=== PATIENT | male | born 1955 | race Caucasian/White ===

== ENCOUNTER → 2016-12-06 | Outpatient (CLI) | payer BC, MEDICARE ==
--- NOTE | 2016-12-06 13:02 | PN ---
This patient is coming in for a compliancy check in regards to his obstructive sleep apnea. He has a history of acoustic neuroma, resected and chronic left facial pulse. He has moderate severe obstructive sleep apnea with an AHI of 26 and currently he is on CPAP pressure of 9 cm of water. His compliancy over the past 30 days, he has been adequate. He is averaging around 8.2 hours of CPAP use per night. His CPAP use for more than 4 hours is 100%. His leak factor is only at 8. AHI while on treatment is down to 2.1. He is using an AirFit P10 small size. He has lost a total of 9 pounds. He is currently down to 205. He is still benefiting from treatment. His sleep quality is stable and good and he wakes up alert and awake during the day. Most recent MRI of the brain has not shown any evidence of recurrence in terms of his acoustic neuroma. BP is 135/81, pulse 84, respirations 16, temperature 98.1. BMI is 33.7, weight 223. Height is 5. 8, saturation 93% on room air. GENERAL APPEARANCE: Calm, comfortable. HEENT: Facial asymmetry secondary to facial palsy. LUNGS: Clear to auscultation. HEART: Sounds are regular rate and rhythm. Normal S1, S2. No S3, no S4. No murmurs. ABDOMEN: Soft, nontender, no organomegaly. EXTREMITIES: No clubbing. No cyanosis or clubbing. IMPRESSION: 1. Symptomatic obstructive sleep apnea with an apnea-hypopnea index of 26, currently on CPAP pressure of 9. The patient continues to benefit from the treatment with good compliance. 2. Chronic hypersomnia, improved. 3. Acoustic neuroma. 4. Postsurgical left facial palsy. 5. Hypertension. PLAN: 1. Continue the same CPAP setting which is at a pressure of 9 cm of water. 2. Encourage further weight loss. 3. Activate EPR features on his CPAP. 4. Will continue to follow.
== END | disposition home or self-care (01) ==
LOC: SLEEP 10:11
PROVIDERS: ATTEND Internal Medicine Critical Care Medicine
DX: G47.33 Obstructive sleep apnea (adult) (pediatric) (principal); G51.0 Bell's palsy; G47.13 Recurrent hypersomnia; D33.3 Benign neoplasm of cranial nerves; Z99.89 Dependence on other enabling machines and devices

== ENCOUNTER → 2018-12-11 | Outpatient (CLI) | payer MEDICARE ==
--- NOTE | 2018-12-11 16:01 | PN ---
PROGRESS NOTE This patient is coming in for an annual check regarding his POLLY. He is known to have POLLY and acoustic neuroma, surgically resected, and the patient has left facial paralysis. The patient has moderate to severe disease with an AHI of 26, and currently on CPAP pressure of 9. His weight is down by around 2 pounds. He is utilizing his CPAP machine every night. CPAP compliance for more than 4 hours is 100%. He is averaging around 8.2 hours of CPAP use per night. His leak is 23 L/minute. AHI is down to 1 while on treatment. He is using the AirFit P10 small-sized nose pillows. No new- onset medical problems or comorbidities. No hypersomnia or sleepiness. No snoring while using the CPAP unit. REVIEW OF SYSTEMS: Fourteen-point review of systems was done. Positive findings were all mentioned above in the history of present illness. He still has some left facial weakness related to surgical resection of an acoustic neuroma. No altered mentation. No hypersomnia or sleepiness. No grinding of the teeth. No restlessness in the lower extremities. No anxiety or depression. No sleep fragmentation. No daytime sleepiness or tiredness or fatigue. PHYSICAL EXAMINATION: BP is 134/72, pulse 54, respirations 16, temperature 98.3, saturation 95% on room air. Height is 5 feet 7 inches, weight 213, BMI 33.3. GENERAL APPEARANCE: Calm, comfortable. Head is atraumatic, normocephalic. NECK: Supple. No JVD. No goiter or neck mass. Mallampati class IV. LUNGS: Diminished; otherwise clear. HEART: Heart sounds are regular rate and rhythm. Normal S1, S2. No S3, S4. No murmurs. ABDOMEN: Soft, nontender. No organomegaly. EXTREMITIES: No edema. No cyanosis or clubbing. NEUROLOGIC: Alert and oriented x3. Left facial paralysis is seen. Left facial paralysis is seen. No focal neurological deficits otherwise. PSYCHIATRIC: Negative for anxiety or depression. SKIN: Negative for any wounds or ulceration. IMPRESSION: 1. Obstructive sleep apnea, moderate to severe, with apnea/hypopnea index of 26, currently on CPAP pressure of 9, and the treatment remains extremely successful. 2. Obesity. Weight is stable. He lost approximately 2 pounds since the last evaluation approximately a year ago. 3. Acoustic neuroma. 4. Left facial palsy, iatrogenic, post surgery. 5. Hypersomnia, recovered. PLAN: 1. Continue CPAP at the same level of pressure. 2. Keep the Crouch FX nose pillows. 3. Encourage further weight loss. 4. Treatment will be kept unchanged, and the patient will see me back in a year's time in followup, earlier if needed. MMVIKRAML / IJN: [id number] /
== END ==
LOC: SLEEP 13:37
PROVIDERS: ATTEND Internal Medicine Critical Care Medicine
DX: G47.33 Obstructive sleep apnea (adult) (pediatric) (principal); E66.9 Obesity, unspecified; D33.3 Benign neoplasm of cranial nerves; G51.0 Bell's palsy; Z98.890 Other specified postprocedural states; Z99.89 Dependence on other enabling machines and devices; Z68.33 Body mass index [BMI] 33.0-33.9, adult

== ENCOUNTER → 2020-04-07 | Outpatient (CLI) | payer MEDICARE ==
--- NOTE | 2020-04-07 15:20 | PN ---
PROGRESS NOTE This is a 64-year-old male patient coming in for an annual check regarding obstructive sleep apnea. The patient has moderate to severe disease with an AHI of 26, and the patient is currently on CPAP pressure of 9 cm of water. Since his last year's evaluation, the patient has lost around 4 pounds. Based on the compliance data that was collected on his machine over the past 30 days, the patient has been averaging around 8.3 hours of CPAP use per night. His CPAP pressure is a pressure of 9. His leak is on the order of 23 L/minute. His AHI is down to 1.6 and he is using AirFit P10 small-sized nasal pillows. Doing well. No significant issues with hypertension, diabetes mellitus, stroke, palpitations or cardiac arrest or cardiac complications. The patient's medication remains unchanged. He has been in a good state of health and there have been no other new-onset comorbidities. His sleep quality is good. He is well refreshed and his [place] score is quite low at this point in time. REVIEW OF SYSTEMS: Fourteen-point review of system was done. Positive findings are all mentioned in the history of present illness. PHYSICAL EXAMINATION: BP is 124/70, pulse 54, respirations 16, temperature 98.7, saturation 95% on room air. Height is 5 feet 8 inches, weight is 209. GENERAL APPEARANCE: Calm, comfortable. HEAD: Atraumatic, normocephalic. NECK: Supple. No JVD. No goiter or neck masses. LUNGS: Clear to auscultation. HEART: Heart sounds are regular rate and rhythm. Normal S1, S2. No S3, S4. No murmurs. ABDOMEN: Soft, nontender. No organomegaly. EXTREMITIES: No edema. No cyanosis or clubbing. NEUROLOGIC: Awake and alert. There is no focal neurological deficit. IMPRESSION: 1. Obstructive sleep apnea, AHI of 26, currently on CPAP pressure of 9. Treatment is very successful and the patient has no major hypersomnia or sleepiness during the day. 2. Hyperlipidemia. 3. Hypertension. PLAN: 1. Encourage further weight loss. 2. Keep continuous CPAP therapy at a pressure of 9. 3. Refills were given on the CPAP supplies. 4. See me back in a year's time in followup. MMODL / IJN: [id number] /
== END | disposition home or self-care (01) ==
LOC: SLEEP 13:53
PROVIDERS: ATTEND Internal Medicine Critical Care Medicine
DX: G47.33 Obstructive sleep apnea (adult) (pediatric) (principal); E78.5 Hyperlipidemia, unspecified; I10 Essential (primary) hypertension; Z99.89 Dependence on other enabling machines and devices

== ENCOUNTER → 2021-04-27 | Outpatient (CLI) | payer MEDICARE ==
--- NOTE | 2021-04-27 16:14 | PN ---
PROGRESS NOTE Juan Francisco is coming in for an annual check regarding obstructive sleep apnea. The patient is known to have POLLY, moderate to severe, with an AHI of 26, and the patient is on CPAP at a pressure of 9 cm of water. He is doing very well and he continues to benefit from the treatment, as the patient is feeling and sleeping much better while on treatment. He goes to bed around 10 p.m., wakes up between 6 and 7 a.m. in the morning, and he wears his CPAP every night without any interruption. He is averaging around 9 hours of CPAP use per night and CPAP use for more than 4 hours is 100%. His pressure is currently at 9. His AHI while on treatment is down to 1.8 and the patient is using AirFit P10 nasal pillows. No new-onset comorbidities. His health has been stable for now. No cardiac arrhythmias. He has not taken his COVID-19 vaccination. He has gained only 2 pounds since his last evaluation. Medications are all the same and unchanged. REVIEW OF SYSTEMS: Fourteen-point review of systems was done. Positive findings are all mentioned above in the history of present illness. MEDICATIONS: Medications include: 1. Hydrochlorothiazide 25 daily. 2. Losartan 100 daily. 3. Metoprolol 2.5 mg p.o. twice a day. 4. Lipitor 20 mg p.o. daily. 5. Supplements, including beet-root powder, coenzyme Q, and probiotics. PHYSICAL EXAMINATION: VITAL SIGNS: BP is 131/72, pulse 58, respirations 16, temperature 98.4, saturation 95% on room air. Height is 5 feet 8 inches. Weight is 211, BMI 32. GENERAL APPEARANCE: Calm, comfortable. HEAD: Atraumatic, normocephalic. NECK: Supple. No JVD. No goiter or neck masses. Mallampati class 4. LUNGS: Clear to auscultation. HEART: Heart sounds are regular rate and rhythm. Normal S1, S2. No S3, S4. No murmurs. ABDOMEN: Soft, nontender. No organomegaly. EXTREMITIES: No edema. No cyanosis or clubbing. NEUROLOGIC: Awake and alert. There is no focal neurological deficit. IMPRESSION: 1. Obstructive sleep apnea, moderate to severe. AHI is 26. Currently on CPAP pressure of 9 cm of water. Treatment is successful. 2. Hypertension with adequate control of blood pressure. 3. Hyperlipidemia. 4. Obesity. BMI of 32. PLAN: 1. Keep the same CPAP pressure setting. 2. Keep the AirFit P10 nasal pillows. 3. Treatment is successful. No issues for now. See me back in a year's time in followup. Condition is stable. Supplies will be refilled. MMODL / IJN: [id number] /
== END | disposition home or self-care (01) ==
LOC: SLEEP 12:52
PROVIDERS: ATTEND Internal Medicine Critical Care Medicine
DX: Z53.9 Procedure and treatment not carried out, unspecified reason (principal)

== ENCOUNTER → 2021-08-05 | Outpatient (CLI) | payer MEDICARE ==
[~2021-08-05] MED LIST: BAMLANIVIMAB (EUA) 700 MG, ETESEVIMAB (EUA) 1,400 MG in SODIUM CHLORIDE 0.9% 100 ML IVPB ONE; SODIUM CHLORIDE 0.9% 50 ML IVPB ONE; SODIUM CHLORIDE 0.9% 500 ML 500 ML in EMPTY BAG 1 BAG IV PRN
[2021-08-05 14:07] VITALS: RESP 16; TEMP 97.9
[2021-08-05 14:23] VITALS: BP 95/61; PULSE 74
== END | disposition home or self-care (01) ==
LOC: PROCWHC3 12:57
PROVIDERS: ATTEND Internal Medicine
DX: U07.1 COVID-19 (principal)
CPT/HCPCS: 96360; J3490; M0245

== ENCOUNTER → 2023-02-21 | Outpatient (CLI) | payer MEDICARE ==
--- NOTE | 2023-02-21 16:38 | P.PN ---
Progress Note - Text Progress Note Date: 02/21/23 This is a 67-year-old male patient was coming in today to the sleep Center regarding his obstructive sleep apnea. The patient is known to have moderate to severe POLLY with an AHI of 26 and the patient will maintain on CPAP therapy at pressure of 9 cm of water. His original diagnosis was back in 2014 and the patient is using the same CPAP unit. The machine has exceeded is motorized expectancy and may need a software up-to-date. However it is fully functional. The patient continues to use the machine every night and the patient is extremely compliant and is compliancy is in order of 100%. The patient is achieving more than 4 hours of CPAP use 100% of the time. The patient has been averaging about 7.6 hours of CPAP use per night. The patient has minimal amount of leak around the mask and the patient's AHI is down to 3.2 while on treatment. The leak is minimal at this point in time in order of 20 liters per minute. No hypersomnia or sleepiness during the day. No nighttime chest pain or shortness of breath or heartburn. No snoring while on therapy. He has undergone surgery for acoustic neuroma the patient has left facial weakness. He needs a follow-up MRI as the patient is not seeing any neurosurgeon at this point in time. His other comorbid conditions include hypertension, and hyperlipidemia. No headache. No nocturia. No other new onset medical issues of comorbidities. His [place] score is at 4 The patient's BP is 133/80 with a pulse of 88 and the respiration of 12 and the temperature 97.8 and his weight is 214 pounds The patient appeared well nourished and normally developed. Vital signs as documented. Head exam is unremarkable. No scleral icterus or corneal arcus noted. Neck is without jugular venous distension, thyromegaly, or carotid bruits. Carotid upstrokes are brisk bilaterally. Lungs are clear to auscultation and percussion. Cardiac exam reveals the PMI to be normally sized and situated. Rhythm is regular. First and second heart sounds normal. No murmurs, rubs or gallops. Abdominal exam reveals normal bowel sounds, no masses, no organomegaly and no aortic enlargement. Extremities are nonedematous and both femoral and pedal pulses are normal.Examination of the skin revealed no evidence of significant rashes, suspicious appearing nevi or other concerning lesions. Neurologically the patient is awake and alert and the patient has left facial weakness related to complications of previous surgery for acoustic neuroma. Medications Losartan 100 mg by mouth daily, metoprolol 25 mg twice a day, Lipitor 10 mg by mouth daily and the patient is also taken multiple supplements Assessment Obstructive sleep apnea moderate in severity with an AHI of 26 and the patient continues to receive successful therapy with a CPAP at a pressure of 9 cm of water. The machine is functional in the compliance data is adequate. Hypersomnia, recovered Hypertension Hyperlipidemia Acoustic neuroma postsurgical resection. Plan Continue CPAP therapy the same level of pressure which is 9 cm of water. Refills will be given on the supplies. 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 No need to update his CPAP machine at this point in time Keep the same mask interface See me back in a year's time and follow-up Follow-up with his primary care physician regarding acoustic neuroma. May be reasonable to repeat MRI of the brain to assess any disease progression as the patient had some residual tumor post surgical resection. Sleep quality is good and the sleep architecture and hygiene is adequate We'll continue to follow
== END ==
LOC: 3 N SLEEP 15:24
PROVIDERS: ATTEND Internal Medicine Critical Care Medicine
DX: G47.33 Obstructive sleep apnea (adult) (pediatric) (principal); I10 Essential (primary) hypertension; E78.5 Hyperlipidemia, unspecified; D33.3 Benign neoplasm of cranial nerves; Z79.899 Other long term (current) drug therapy; Z99.89 Dependence on other enabling machines and devices; Z91.030 Bee allergy status
CPT/HCPCS: 99212

== ENCOUNTER → 2024-08-20 | Outpatient (CLI) | payer MEDICARE ==
[2024-08-20 14:56] VITALS: BP 159/88; PULSE 56; RESP 16; TEMP 97.9
--- NOTE | 2024-08-20 15:38 | P.PN ---
Progress Note - Text Progress Note Date: 08/20/24 On 08/20/2023, the patient is being seen in follow-up regarding obstructive sleep apnea. The patient known to me and the patient has been diagnosed having obstructive sleep apnea back in 2014 and the patient has a AHI of 26 and the patient has been on CPAP therapy at a pressure of 9 cm of water. The patient is coming in for an annual check regarding his POLLY. The patient has been extremely compliant to CPAP therapy. Based on compliance data collected on his machine over the past 1 year, the patient has used the machine 364/365 days. He is been averaging around 8.7 hours of CPAP use per night and the leak has been in the order of 20 to liters per minute. His AHI is down to 3.9 with a central apnea index of 1.9. He is using the AirFit P10 small size nasal pillows. His weight has been stable, 3 pounds less compared to his last evaluation back in 2022. His machine is functional and the patient obtains his supplies through [employer]. No other significant events over the past 2 years. He is known to have acoustic neuroma and the patient has undergone surgical resection of the brain tumor and the patient has chronic left facial paralysis. He also has hearing loss. No recent cardiac events. No cardiac arrhythmias. No congestion or heart failure. No stroke. His current [place] score is at 3 Medication include metoprolol 25 mg twice a day, losartan 100 mg p.o. daily, Lipitor 20 mg p.o. daily BP is 159/88 with a pulse of 56 and respiration of 16 and a temperature 97.9. Weight is 211 and body mass index is 32.5 The patient appeared well nourished and normally developed. Vital signs as documented. Head exam is unremarkable. No scleral icterus or corneal arcus noted. Neck is without jugular venous distension, thyromegaly, or carotid bruits. Carotid upstrokes are brisk bilaterally. Lungs are clear to auscultation and percussion. Cardiac exam reveals the PMI to be normally sized and situated. Rhythm is regular. First and second heart sounds normal. No murmurs, rubs or gallops. Abdominal exam reveals normal bowel sounds, no masses, no organomegaly and no aortic enlargement. Extremities are nonedematous and both femoral and pedal pulses are normal. Examination of the skin revealed no evidence of significant rashes, suspicious appearing nevi or other concerning lesions. Neurologically, the patient is awake and alert and the patient does not have any focal neurological deficit. Cranial nerves are essentially intact. Assessment Obstructive sleep apnea moderate in severity with an AHI of 26 and the patient continues to receive successful therapy with a CPAP at a pressure of 9 cm of water. The machine is functional in the compliance data is adequate. Treatment remains successful and the patient is extremely compliant based on the compliance data that has been checked over the past 1 year Hypersomnia, recovered, current [place] score is at 3 Hypertension Hyperlipidemia Acoustic neuroma postsurgical resection. Plan Continue CPAP therapy the same level of pressure which is 9 cm of water. Refills will be given on the supplies. The patient is he is using the AirFit P10 nasal pillow, small size The patient is utilizing a ResMed 11 new generation CPAP unit Keep the same mask interface Sleep quality is good and the sleep architecture and hygiene is adequate The patient has been losing weight see me back in a years time in follow-up.
== END ==
LOC: 3 N SLEEP 14:31
PROVIDERS: ATTEND Internal Medicine Critical Care Medicine
DX: G47.33 Obstructive sleep apnea (adult) (pediatric) (principal); G47.10 Hypersomnia, unspecified; I10 Essential (primary) hypertension; E78.5 Hyperlipidemia, unspecified; D33.3 Benign neoplasm of cranial nerves; Z91.030 Bee allergy status
CPT/HCPCS: 99212